=== PATIENT | male | born 1960 | race African-American/Black ===

== ENCOUNTER → 2017-04-14 | Outpatient (CLI) | payer OTHER ==
[~2017-04-14] VITALS: Ht 175.3 cm; Wt 94.3 kg
[~2017-04-14] MED LIST: ALDACTONE25 MG PO; AMLODIPINE BESY10 MG PO; CELEBREX 200 M200 M1 PO; CELEXA10 MG PO; LYRICA25 MG PO; NORCO 10-325 T1 EACH PO; PIROXICAM20 MG PO; TOPROL XL25 MG PO; WELLBUTRIN 100100 MG PO; XANAX 0.5 MG0.5 MG PO; ZESTORETIC 20-1 EAC3 PO
--- NOTE | ~2017-04-14 | HPC ---
[facility] [place] [address] PAIN MANAGEMENT CONSULTATION Name: LUIS FERNANDO FARRELL Room #: REG [facility] Luiz.#: [id number] Admission: 04/14/17 Attend Phys: Coreen Alvarenga MD Discharge: Date of : 58 Report #: [id number] THIS REPORT FOR: //name// CC: Kole Alvarenga DATE OF SERVICE: 04/14/2017 FOLLOWUP COMPLAINT: Pain improved after the last injection, but has started to return, so I have come for another injection. FOLLOWUP HISTORY: The patient is a 56-year-old gentleman who has been seen in the pain clinic because of lumbar radiculopathy. As you recall, he has instrumentation in the L4-L5 and sacral areas. Rodding is evident. He continues to have pain and discomfort in this area. He underwent a transforaminal epidural steroid injection on the right at the last visit. He noted improvement. He is now having pain down the left and right L5-S1 distribution. PHYSICAL EXAMINATION: Blood pressure 122/75, pulse 86, respiratory rate 14, room air saturation 97%. Height 5 feet 9 inches, weight 175 pounds, BMI is 30. The patient has not fallen since we saw him last. He describes his pain as a 9/10. He is experiencing chronic shooting, burning, aching, throbbing pain down in the lower portion of his back with numbness of his toes on the left side and weakness of his legs bilaterally. Notes that activities of late daily living continue to exacerbate his pain. IMPRESSION: 1. Failed back syndrome with lumbar radiculopathy at the L5-S1 dermatomal distribution on the left and right. The patient has cages and rodding in place at this juncture. 2. Depression/psychosis. 3. Hypertension. RECOMMENDATIONS: We discussed treatment options with the patient. Risks and benefits of a transforaminal epidural steroid injection at the left and right low back area were discussed. Possible complications of the procedure were explained. The patient elects to proceed. PROCEDURE NOTE: The patient was placed in the prone position. Fluoroscopy was used to identify the L5-S1 area on the left and L5-S1 area on the right. A 20-gauge spinal needle was then advanced into the appropriate position on the right and a 20-gauge spinal needle was then placed on the left at the L5-S1 distribution using fluoroscopy. A total of 80 mg Depo-Medrol was injected on the right side and 80 mg Depo-Medrol was injected on the left side. The patient [address] [address] PAIN MANAGEMENT CONSULTATION Name: LUIS FERNANDO FARRELL Room #: REG Eliel Bee#: [id number] Admission: 04/14/17 Attend Phys: Coreen Alvarenga MD Discharge: Date of : 58 Report #: [id number] tolerated the procedure well. There were no complications. His pain decreased from 9 to 0 at the time of discharge. He will follow up in the future as needed. We would like to thank you for letting us participate in his care. We hope he continues to improve. By: [id number] Coreen Alvarenga MD /nt
[2017-04-14 08:36] VITALS: BP 122/75
== END ==
LOC: PAIN 06:46
DX: M54.16 Radiculopathy, lumbar region (principal); M96.1 Postlaminectomy syndrome, not elsewhere classified; I10 Essential (primary) hypertension; F32.9 Major depressive disorder, single episode, unspecified

== ENCOUNTER → 2017-12-03 | Outpatient (CLI) | payer OTHER ==
[~2017-12-03] VITALS: Ht 175.3 cm; Wt 98.7 kg
[~2017-12-03] MED LIST changes: +CYMBALTA60 MG PO; +FLONASE 0.05%50 MCG NASAL; +HYDROCODONE-AP1 EAC6 PO; +LYRICA 75 MG CA75 MG PO; +MEDROLDOSEPACK PO; +MOBIC7.5 MG PO; +PLAVIX 75 MG TA75 M1 PO; +PRAVACHOL40 MG PO; +PROPRANOLOL 4040 M1 PO; +RETAINE HPMC 0.10 ML OTIC; +TOPAMAX 100 MG100 MG PO; +VOLTAREN GEL 1100 G2 TOP; +ZYRTEC10 MG PO
[2017-12-03 13:07] VITALS: BP 170/107
== END ==
LOC: PAIN 07:01
DX: M54.5 Low back pain (principal)

== ENCOUNTER → 2017-12-08 | Outpatient (CLI) | payer OTHER ==
[~2017-12-08] VITALS: Ht 175.3 cm; Wt 94.8 kg
[~2017-12-08] MED LIST changes: +LIPITOR 20 MG T20 M1 PO; +TRIAMTERENE/HCT1 CA1 PO; +ZESTRIL10 MG PO
--- NOTE | ~2017-12-08 | HPC ---
[facility] [place] [address] PAIN MANAGEMENT CONSULTATION Name: LUIS FERNANDO FARRELL Room #: REG [facility] Rohit#: [id number] Admission: 12/08/17 Attend Phys: Coreen Alvarenga MD Discharge: Date of : 58 Report #: [id number] THIS REPORT FOR: //name// CC: Kole Alvarenga DATE OF SERVICE: 12/08/2017 FOLLOWUP COMPLAINT: Pain improved after the last injections, but has returned, and like to get another injection. FOLLOWUP HISTORY: The patient is a 57-year-old gentleman who has been seen in the pain clinic because of chronic pain. As you recall, he has had a significant problem with his back. He has had cages as well as rods and pedicle screws placed in the lumbar area. He rates his pain as 8/10 at this juncture. He had undergone transforaminal epidural steroid injections in the past and gleaned benefits from these. At this juncture, his pain has started to increase. He had no complication from the last injection. There is no change in his bowel or bladder function. 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 He has associated that with a component of his discomfort. Has found that hydrocodone b.i.d. 5 mg is helpful. He continues to take Lyrica and meloxicam as well. ALLERGIES: OXYCONTIN, OXYCODONE, AND PENICILLIN. MEDICATIONS: Current medication regimen are reviewed and include Zyrtec 10 mg daily, Topamax 100 mg b.i.d., Pravachol 40 mg daily, Plavix 75 mg daily, propranolol 40 mg b.i.d., Voltaren gel applied to the affected joint q.i.d., Hypromellose/PF eye drops b.i.d., Flonase 0.5% nasal spray, Meloxicam 7.5 mg daily, Cymbalta 60 mg daily, hydrocodone 5/325 b.i.d., Lyrica 150 mg tablets daily, 2 Lyrica 75 mg b.i.d., alprazolam 0.5 mg q.8 hours p.r.n. anxiety, and amlodipine 5 mg daily. PAIN CLINIC ASSESSMENT: 1. The patient has arthritic problems involving his low back and has undergone rodding and cages placed in the lower portion of his back. 2. Height 5 feet 9 inches, weight 209 pounds, and BMI is 30. 3. Vital signs: Blood pressure 163/106, pulse 94, respiratory rate 16, and room air saturation is 97. Pain intensity 8/10. 4. Fall risk. The patient has not fallen in the last 3 months. 5. The patient is not on any blood thinning medications. 6. History of hypertension. He is being treated for hypertension. 7. Opioid therapy greater than 6 weeks. The patient is using hydrocodone 5/325 b.i.d. 8. Risk assessment tool, rates his pain impact score as a 60/70 in regards to [address] [address] PAIN MANAGEMENT CONSULTATION Name: LUIS FERNANDO FARRELL Room #: REG CLEliel Bee#: [id number] Admission: 12/08/17 Attend Phys: Coreen Alvarenga MD Discharge: Date of : 58 Report #: [id number] general activity, mood, walking ability, normal work, relationships with others, sleep as well as enjoyment of life, tries to continue to work out. Walks, the patient is a 1 on a scale of 0-8 regarding risk for opioid problems. 9. Drug use: The patient denies use of drugs. 10. Tobacco: The patient denies use of tobacco. Drinks possibly 2 drinks per day or four drinks per week. PHYSICAL EXAMINATION: GENERAL: The patient is a well-developed black male, appears his stated age. Orientation: The patient is alert and oriented x 3. Affect: The patient's affect appears appropriate. HEENT: The patient is normocephalic and atraumatic. Extraocular eye muscles intact. Normal hearing. No complaint of nasal problems. Moist buccal membrane. NECK: Without adenopathy or bruits. CHEST: Clear to auscultation. HEART: Regular rate. ABDOMEN: Nontender. MUSCULOSKELETAL: Normal alignment. The patient has an area of well-healed scar in the lower portion of his back in L3 through L5 area. Lumbar flexion to about 45 degrees cause some increased back pain and discomfort. Lumbar extension is limited. Left and right lateral rotation and left and right lateral bending are somewhat limited as well. Muscle strength is judged to be 5/5 for the major muscle groups in the lower extremity. There is no clonus. IMPRESSION: 1. Lumbar radiculopathy, status post failed back syndrome, left and right L5-S1 distribution. 2. Hypertension. 3. Psychosis. 4. Depression. RECOMMENDATIONS: We discussed treatment options with the patient. Risks and benefits of another epidural steroid injection using the transforaminal approach was discussed. Possible complications were reviewed. They include but are not limited to infection, increased muscle soreness, headache, bleeding, nerve trauma, worsening of pain or no improvement in pain and the patient elects to proceed. PROCEDURE NOTE: The patient was taken to the procedure room. He was assisted in getting on the examination table. The patient was then prepared for the procedure. His back was sterilely prepped with a Betadine solution. A 0.25% bupivacaine was infiltrated. An anterior posterior/lateral approach was used on the left side and the right side. After appropriate placement using anterior and posterior visualization of the targeted area of the L5-S1, a 20-gauge spinal needle was then advanced into the appropriate area. After appropriate placement [address] [address] PAIN MANAGEMENT CONSULTATION Name: BUDMONAPRISCILLA Room #: REG CLI [facility]#: [id number] Admission: 12/08/17 Attend Phys: Coreen Alvarenga MD Discharge: Date of : 58 Report #: [id number] was noted on both sides, a total of 80 mg Depo-Medrol was placed on the left and 40 mg x 2 on the right. The patient tolerated the procedure well. His pain decreased from 9-0 at the time of discharge. He will follow up in the future as needed. We would like to thank you for letting us to participate in his care. We hope he continues to improve. <ELECTRONICALLY SIGNED> By: Coreen Alvarenga MD 01/05/18 1426 [id number] [id number] Coreen Alvarenga MD /ANA
[2017-12-08 10:14] VITALS: BP 163/106
== END | disposition home or self-care (01) ==
LOC: PAIN 06:42
DX: M54.16 Radiculopathy, lumbar region (principal); Z98.890 Other specified postprocedural states; I10 Essential (primary) hypertension; F32.9 Major depressive disorder, single episode, unspecified; Z88.8 Allergy status to other drugs, medicaments and biological substances; Z88.0 Allergy status to penicillin; Z79.899 Other long term (current) drug therapy

== ENCOUNTER 2018-04-06 10:55 | Emergency (ER) | payer OTHER ==
[~2018-04-06] VITALS: Ht 175.3 cm; Wt 92.1 kg
[~2018-04-06 10:55] MED LIST changes: -TRIAMTERENE/HCT1 CA1 PO
[2018-04-06] MEDS ORDERED: TRIAMTERENE/HCT1 CA1 PO (12:05)
== END 2018-04-06 12:35 | disposition home or self-care (01) ==
LOC: ER 10:55
DX: I10 Essential (primary) hypertension (principal); Z88.0 Allergy status to penicillin; Z88.5 Allergy status to narcotic agent

== ENCOUNTER → 2018-04-06 | Outpatient (CLI) | payer OTHER ==
[~2018-04-06] VITALS: Ht 175.3 cm; Wt 92.4 kg
[~2018-04-06] MED LIST changes: -LIPITOR 20 MG T20 M1 PO; -ZESTRIL10 MG PO
--- NOTE | ~2018-04-06 | HPC ---
[facility] [place] [address] PAIN MANAGEMENT CONSULTATION Name: LUIS FERNANDO FARRELL Room #: REG MADELYN Bee#: [id number] Admission: 04/06/18 Attend Phys: Coreen Alvarenga MD Discharge: Date of : 58 Report #: [id number] THIS REPORT FOR: //name// CC: Kole Alvarenga DATE OF SERVICE: 04/06/2018 FOLLOWUP COMPLAINT: The pain improved after the last injection, but now has started to return. FOLLOWUP HISTORY: The patient is a 57-year-old gentleman with a history of significant back problems. He has undergone fusion of his low back with use of pedicle screws and rods. He has had some feelings of the procedure. He continues to have some pain and discomfort, which radiates down the lower portion of his back as well as down into his legs. He is a truck loader. He notes that the last injection was quite helpful. This was in November of this year. He has been doing relatively well. He has noted some return of his discomfort in an effort to try to stay ahead of this pain. He has returned today with hopes of undergoing epidural steroid injection using the transforaminal approach, which was used in the last series. He has stopped taking his Plavix with a hope of undergoing an epidural transforaminal injection on the left than the right, which were helpful in November. He has had no complication from their use. Still finds that hydrocodone is helpful. Finds that Lyrica and meloxicam were still worthwhile as well. ALLERGIES: OXYCONTIN, OXYCODONE, AND PENICILLIN. CURRENT MEDICATIONS: Zyrtec 10 mg, Topamax 100 mg, 50 mg b.i.d. Pravachol 40 mg total of 80 mg daily, Plavix 75 mg daily, propranolol 40 mg b.i.d., Voltaren gel to the affected joint, 2 grams eye drop, hypromellose/PF 0.3% b.i.d., Flonase 0.05% nasal spray b.i.d., Mobic 7.5 mg, Cymbalta 60 mg, hydrocodone 5/325 one p.o. b.i.d. p.r.n., Lyrica 75 mg, 150 mg daily; alprazolam 0.5 mg q.8 hours p.r.n. anxiety, amlodipine 10 mg, 5 mg daily. PAIN CLINIC ASSESSMENT: 1. The patient does have arthritic changes in the lower back and has undergone rodding and cages in the lower portion of his back. 2. Height 5 feet 9 inches, weight 203 pounds, BMI is 30. 3. Vital signs 162/107, pulse 64, respiratory rate 16, room air saturation 100. 4. Pain intensity 8/10. 5. Fall risk. The patient has not fallen in the last 3 months. 6. Blood thinner. The patient is on Plavix and has stopped taking his medication for the last 5 days. 7. History of hypertension. The patient is being treated for hypertension. 8. Opioid therapy greater than 6 weeks. The patient is taking hydrocodone, [address] [address] PAIN MANAGEMENT CONSULTATION Name: LUIS FERNANDO FARRELL Room #: REG MADELYN Bee#: [id number] Admission: 04/06/18 Attend Phys: Coreen Alvarenga MD Discharge: Date of : 58 Report #: [id number] gets the medication from one source. 9. Risk assessment low risk for opioid use. 10. Functional assessment tool. 11. Recreational drug use. The patient denies use of recreational drugs. 12. Tobacco: The patient has never smoked. 13. Alcohol: The patient drinks "few times per week." PHYSICAL EXAMINATION: GENERAL: The patient is a well-developed, well-nourished black male. He appears his stated age. He is alert and oriented x 3. His affect is appropriate. Speech is fluent. HEENT: Normocephalic, atraumatic. Extraocular eye muscles intact. Sclerae nonicteric. Mucous membranes are moist. Hearing is within normal limits. NECK: With good range of motion without adenopathy or bruits. CHEST: Clear to auscultation without rales or crackles. HEART: Regular rate. S1, S2. ABDOMEN: Nontender. MUSCULOSKELETAL: Normal alignment without significant kyphosis or scoliosis, somewhat limited flexion and extension of the low back area secondary to fusion. Muscle strength is judged to be 5/5 for the major muscle groups. The patient has pain and discomfort which is radiating down in the L5-S1 nerve root dermatomes on the left as well as in the right. There is no clonus. IMPRESSION: 1. Lumbar radiculopathy, status post failed back syndrome with left and right L5-S1 nerve root irritation. 2. Hypertension. 3. Psychosis. 4. Depression. RECOMMENDATIONS: We discussed treatment options with the patient. Risks and benefits of an epidural steroid injection using the transforaminal approach was discussed. Possible complications of the procedure were reviewed. They include but are not limited to infection, increased muscle soreness, headaches, bleeding, worsening of pain, no improvement in pain. The patient elects to proceed. PROCEDURE NOTE: The patient was placed in the prone position. Fluoroscopy was used to identify the L5-S1 areas on the left than the right using fluoroscopy and an anterior, posterior as well as lateral approach. The right L5-S1 area was noted with use of fluoroscopy. A 0.25% bupivacaine was infiltrated into the skin. A 20-gauge spinal needle was then advanced into the appropriate area using fluoroscopy. The left side was treated in a like fashion. The back had been sterilely prepped using a Betadine solution, which was allowed to dry. A 25-gauge needle was then used to make a skin wheal. A 22-gauge spinal needle was placed on the left side as well. Fluoroscopy was used to corroborate [facility] [address] [place] [address] PAIN MANAGEMENT CONSULTATION Name: LUIS FERNANDO FARRELL Room #: REG Eliel Dee.#: [id number] Admission: 04/06/18 Attend Phys: Coreen Alvarenga MD Discharge: Date of : 58 Report #: [id number] appropriate placement of the left as well as the right transforaminal needles. A total of 80 mg Depo-Medrol was injected on the right. A total of 80 mg Depo-Medrol was injected on the left with 2 mL of 0.25% bupivacaine on both cases. The patient tolerated the procedure well. He was taken to the recovery room. It was noted that he did have some elevation of his blood pressure in the 200-126 levels. He was then allowed to wait in the TV room to note whether or not his blood pressures would decline. Blood pressures remain somewhat elevated. We called his primary. They stated that primary was not in. We then recommended the patient go to the Emergency Room in the hospital given that he had blood pressure levels of 223/118. He was told that he should go to the [facility]. I again explained to the patient that I think he should be seen and treated here given the elevation of his blood pressure. He went to the Emergency Room and was seen. We would like to thank you for letting us participate in his care. We hope he continues to improve. <ELECTRONICALLY SIGNED> By: Coreen Alvarenga MD 04/14/18 0936 1535 [id number] Coreen Alvarenga MD /nt
[2018-04-06 08:14] VITALS: BP 162/107
== END | disposition home or self-care (01) ==
LOC: PAIN 06:58
DX: M54.16 Radiculopathy, lumbar region (principal); G89.29 Other chronic pain; I10 Essential (primary) hypertension; F32.9 Major depressive disorder, single episode, unspecified; F29 Unspecified psychosis not due to a substance or known physiological condition; Z88.0 Allergy status to penicillin; Z88.8 Allergy status to other drugs, medicaments and biological substances; Z79.899 Other long term (current) drug therapy; Z79.891 Long term (current) use of opiate analgesic; Z98.890 Other specified postprocedural states

== ENCOUNTER → 2019-12-15 | Outpatient (CLI) | payer OTHER ==
[~2019-12-15] VITALS: Ht 175.3 cm; Wt 93.9 kg
[~2019-12-15] MED LIST changes: +LIPITOR 20 MG T20 M1 PO; +LISINOPRIL-HCT1 EACH PO; +NORTRIPTYLINE H10 M1 PO; +TRIAMTERENE/HCT1 CA1 PO; +ZESTRIL10 MG PO
--- NOTE | ~2019-12-15 | HPC ---
[facility] [place] [address] PAIN MANAGEMENT CONSULTATION Name: LUIS FERNANDO FARRELL Room #: REG MADELYN Rohit#: [id number] Admission: 12/15/19 Attend Phys: Coreen Alvarenga MD Discharge: Date of : 58 Report #: [id number] THIS REPORT FOR: cc: Kole Joseph MD, Douglas L. MD Brown,Coreen Mckinney MD ~ CC: Kole Alvarenga DATE OF SERVICE: 12/15/2019 CHIEF COMPLAINT: Recurrence of low back pain. HISTORY: The patient is a 59-year-old gentleman who has been seen in the pain clinic because of low back pain. He has pain that is radiating down into both left and right buttocks and down into his leg on the left side to involve his foot. He has undergone transforaminal epidural steroid injections in the past. These were beneficial. At this point, he has noticed that his pain has increased. He rates it as an 8-9. As you may recall, he has had back surgery with instrumentation with rods and pedicle screws. He has noticed over the last few weeks, worsening of his pain. He would like to proceed with an epidural injection. ALLERGIES: OXYCODONE, PENICILLIN. CURRENT MEDICATIONS: Zyrtec 10 mg, lisinopril/hydrochlorothiazide 10/12.5, hydrocodone 10/325, nortriptyline ____ at bedtime, Lipitor 20 mg, Topamax 10 mg b.i.d., propranolol 40 mg, Voltaren gel 1% to affected areas, Retaine [facility] 0.3% eyedrops b.i.d., Flonase 0.05% nasal spray, and alprazolam 0.5 mg. PAIN CLINIC ASSESSMENT AND PQRS: 1. History of osteoarthritis with back arthritic changes. 2. Rheumatoid arthritis. 3. Height 5 feet 9 inches, weight 207 pounds, BMI is 36.0. 4. Vital signs: Blood pressure 140/83, pulse 85, respiratory rate 16, room air saturation 100%. 5. Pain intensity 8-10. 6. Fall history: The patient has not fallen since we saw him last. 7. Blood thinner. The patient is not on a blood thinning medication. 8. Hypertension. The patient is being treated for hypertension. 9. Opioids greater than 6 weeks. The patient receives medication from one source, pain clinic. 10. Risk assessment tool, low for opioid use. 11. Functional assessment tool 61/70. 12. Recreational drug use: The patient denies. 13. Tobacco: The patient has never smoked. [address] [address] PAIN MANAGEMENT CONSULTATION Name: LUIS FERNANDO FARRELL Room #: REG MADELYN Bee#: [id number] Admission: 12/15/19 Attend Phys: Coreen Alvarenga MD Discharge: Date of : 58 Report #: [id number] 14. Alcohol: The patient drinks 1-2 alcoholic beverages weekly. PHYSICAL EXAMINATION: GENERAL: The patient is a well-developed, well-nourished black male, appears his stated age. He is alert and oriented x 3. His affect is appropriate. Speech is fluent. HEENT: Normocephalic, atraumatic. Extraocular eye muscles intact. The patient has ptosis of the left eye. States that he had Botox injection and this has caused weakness in the muscle above his eye. NECK: Without adenopathy or JVD. CHEST: Clear to auscultation without rhonchi or rales. HEART: Regular rate. S1, S2. ABDOMEN: Nontender. MUSCULOSKELETAL: The patient without significant kyphosis or scoliosis. The patient has some limited flexion and extension in the ____ lower portion of his back secondary to fusion. Muscle strength judged to be 5-/5 for the major muscle groups in the upper and lower extremity. The patient has pain and discomfort that is radiating down the L5-S1 dermatomal distribution on the left side as well as on the right. IMPRESSION: 1. Lumbar radiculopathy, L5-S1 area, left and right nerve root irritation, status post failed back syndrome. 2. Hypertension. 3. Psychosis. 4. Depression. 5. 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 RECOMMENDATIONS: We discussed treatment options with the patient. Risks and benefits of an epidural steroid injection were discussed. They include but are not limited to infection, worsening of pain, no improvement in pain, nerve damage, and the patient elects to proceed. PROCEDURE NOTE: The patient was taken to the procedure area. He was then assisted in getting on examination table. His back was sterilely prepped with a Betadine solution. This was allowed to dry. The left and right L5-S1 area using the transforaminal approach was undertaken. After appropriate placement using fluoroscopy anterior, posterior as well as lateral viewing. The 22-gauge spinal needles were placed. A total of 80 mg Depo-Medrol on the left and 80 mg Depo-Medrol on the right were injected. The patient's pain decreased from 8-9-0 at the time of discharge. The patient had total function of his lower extremities at the time of discharge. He will follow up in the future as needed. [address] [address] PAIN MANAGEMENT CONSULTATION Name: LUIS FERNANDO FARRELL [facility] [id number] Admission: 12/15/19 Attend Phys: Coreen Alvarenga MD Discharge: Date of : 58 Report #: [id number] We would like to thank you for letting us participate in his care. We hope he continues to improve. By: [id number] Coreen Alvarenga MD /jesus
[2019-12-15 08:50] VITALS: BP 140/81
--- NOTE | 2019-12-15 09:13 | NUR ---
Pain Clinic Assessment: 1. History of Osteoarthritis: BACK History of Rheumatoid Arthritis: 2. Height: 5 ft. 9 in. 175.3 cm. Weight: 207.0 lb. oz. 93.895 kg. Patient's BMI: 30.6 3. Vital Signs: BP: 140/81 Pulse: 85 Resp: 16 Temp: 02 Sat: 100 ECG Mon: 4. Pain Intensity: 8-9 5. Fall Risk: Dizziness: N Needs help standing or walking: N Fallen in the last 3 months: N Fall risk comments: 6. Patient on Blood Thinner: None 7. History of Hypertension: Y 8. Opioid Therapy greater than 6 weeks: Y Opiate Contract Signed: 9. Risk Assessment Tool Provided: 1-LOW RISK 10. Functional Assessment Tool: 61/70 11. Recreational Drug Use: Never Drug Type: Tobacco Use: Never Smoker Tobacco Type: Amount or Packs/day: How Many Years: Alcohol Use: Yes Frequency: Weekly Quant: 1-2
== END | disposition home or self-care (01) ==
LOC: PAIN 06:41
DX: M54.16 Radiculopathy, lumbar region (principal); M54.5 Low back pain; G89.29 Other chronic pain; M96.1 Postlaminectomy syndrome, not elsewhere classified; I10 Essential (primary) hypertension; F32.9 Major depressive disorder, single episode, unspecified; Z98.890 Other specified postprocedural states; Z79.899 Other long term (current) drug therapy; Z88.0 Allergy status to penicillin; Z79.891 Long term (current) use of opiate analgesic

== ENCOUNTER → 2020-11-15 | Outpatient (CLI) | payer OTHER ==
[~2020-11-15] VITALS: Ht 175.3 cm; Wt 90.5 kg
[2020-11-15 10:20] VITALS: BP 148/102
--- NOTE | 2020-11-15 10:46 | NUR ---
Pain Clinic Assessment: 1. History of Osteoarthritis: BACK History of Rheumatoid Arthritis: 2. Height: 5 ft. 9 in. 175.3 cm. Weight: 199.6 lb. oz. 90.538 kg. Patient's BMI: 29.5 3. Vital Signs: BP: 148/102 Pulse: 79 Resp: 16 Temp: 02 Sat: 100 ECG Mon: 4. Pain Intensity: 8-9 5. Fall Risk: Dizziness: N Needs help standing or walking: N Fallen in the last 3 months: N Fall risk comments: 6. Patient on Blood Thinner: None 7. History of Hypertension: Y 8. Opioid Therapy greater than 6 weeks: Y Opiate Contract Signed: 9. Risk Assessment Tool Provided: 1-LOW RISK 10. Functional Assessment Tool: 61/70 11. Recreational Drug Use: Never Drug Type: Tobacco Use: Never Smoker Tobacco Type: Amount or Packs/day: How Many Years: Alcohol Use: Yes Frequency: Weekly Quant: 4
== END | disposition home or self-care (01) ==
LOC: PAIN 06:52
PROVIDERS: ATTEND Anesthesiology Pain Medicine
DX: M54.16 Radiculopathy, lumbar region (principal); G89.29 Other chronic pain; I10 Essential (primary) hypertension; J45.909 Unspecified asthma, uncomplicated; F32.9 Major depressive disorder, single episode, unspecified; Z98.890 Other specified postprocedural states; Z79.899 Other long term (current) drug therapy; Z88.0 Allergy status to penicillin